=== PATIENT | female | born 1950 | race Two or more races ===

== ENCOUNTER 2023-12-17 12:15 | Inpatient (IN) | payer OTHER ==
[~2023-12-17] VITALS: Ht 162.6 cm; Wt 76.2 kg
[2023-12-17 16:53] LABS: PROTHROMBIN TIME 11.2 SECONDS (9.0-11.5)
[2023-12-17 16:54] LABS: INR 1.07; PARTIAL THROMBOPLASTIN TIME 28.1 SECONDS (22.0-34.0)
[2023-12-19] MEDS ORDERED: GLIPIZIDE XL2.5 MG PO (17:06)
[2023-12-19] MEDS ORDERED: ZESTRIL2.5 MG PO (17:06)
[2023-12-20] MEDS ORDERED: GLIPIZIDE10 MG (14:47)
[2023-12-20] MEDS ORDERED: ATORVASTATIN CA10 MG (14:47)
[2023-12-20] MEDS ORDERED: LISINOPRIL5 MG (14:47)
[2023-12-20] MEDS ORDERED: CEFAZOLIN SODIUM 1,000 MG VIAL ONE (14:54)
[2023-12-20] MEDS ORDERED: BUPIVACAINE HCL/PF 0.5% 30ML ML ONE (14:56)
[2023-12-20] MEDS ORDERED: LIDOCAINE HCL 1%/Epi 20ML VIAL IJ ONE (14:56)
[2023-12-20] MEDS ORDERED: POVIDONE-IODINE 118 ML BOTT TOP ONE ×2 (15:00→16:30)
[2023-12-20] MEDS ORDERED: CEFAZOLIN SODIUM 1,000 MG VIAL IV ONE (16:30)
[2023-12-20] MEDS ORDERED: BUPIVACAINE HCL 30 ML VIAL IJ ONE (16:45)
[2023-12-20] MEDS ORDERED: LIDOCAINE HCL 1% 200MG/20ML VIAL IJ ONE (16:45)
[2023-12-20] MEDS ORDERED: THROMBIN,HU/FIBRINOGEN/CALCIUM 10 ML SYRINGE TOP ONE (17:27)
[2023-12-20] MEDS ORDERED: VISTASEAL DUAL APPICATOR 1 EACH APPL TOP ONE (17:27)
[2023-12-20] MEDS ORDERED: MORPHINE SULFATE 4 MG/ML CARTRIDGE IV PRN (18:30)
[2023-12-20] MEDS ORDERED: ONDANSETRON HCL 2 MG/ML VIAL IV PRN (18:30)
[2023-12-20] MEDS ORDERED: RINGERS SOLUTION,LACTATED 1,000 ML IV SCH (18:30)
[2023-12-20] MEDS ORDERED: hydrALAZINE HCL 20 MG VIAL ONE (18:36)
[2023-12-20] MEDS ORDERED: FAMOTIDINE/PF 20 MG/2 ML VIAL IV SCH (21:00)
[2023-12-20] MEDS ORDERED: DOCUSATE SODIUM 100MG CAP PO SCH (21:00)
[2023-12-20] MEDS ORDERED: ENALAPRILAT DIHYDRATE 1.25 MG/ML VIAL IV PRN (21:30)
[2023-12-20] MEDS ORDERED: FAMOTIDINE/PF 20 MG/2 ML VIAL ONE (21:33)
[2023-12-20 23:14] LABS: HEMATOCRIT 37.7 % (36.0-45.00); HEMOGLOBIN 12.5 g/dL (12.0-15.00); MEAN CELL VOLUME 87.5 fL (80.00-100.00); MEAN CORPUSCULAR HGB CONC 33.1 g/dl (32.0-36.0); PLATELET COUNT 217 K/uL (150-450); RED CELL DISTRIBUTION WIDTH 13.9 % (11.5-14.5)
[2023-12-20 23:41] LABS: CALCIUM 8.8 mg/dL (8.5-10.1); CREATININE SERUM 0.75 mg/dL (0.55-1.02); GFR 75.75; POTASSIUM 3.76 mEq/L (3.5-5.1)
[2023-12-21] MEDS ORDERED: CEFOXITIN SODIUM 2,000 MG VIAL IV SCH (01:00)
[2023-12-21] MEDS ORDERED: KETOROLAC TROMETHAMINE 30 MG VIAL IV SCH (01:00)
[2023-12-21 07:21] LABS: HEMOGLOBIN 12.2 g/dL (12.0-15.00); MEAN CORPUSCULAR HEMOGLOBIN 28.8 pg (27.00-32.0); PLATELET COUNT 230 K/uL (150-450); RED BLOOD COUNT 4.25 M/uL (4.00-6.00); RED CELL DISTRIBUTION WIDTH 14.1 % (11.5-14.5)
[2023-12-21 07:24] LABS: CALCIUM 8.7 mg/dL (8.5-10.1); CREATININE SERUM 0.65 mg/dL (0.55-1.02); GFR 89.35; POTASSIUM 4.2 mEq/L (3.5-5.1)
[2023-12-21] MEDS ORDERED: SIMETHICONE 125 MG CAPSULE PO SCH (09:00)
[2023-12-21] MEDS ORDERED: ENOXAPARIN SODIUM 40 MG/0.4 ML SYRINGE SUBCUTANEO SCH (09:00)
== END 2023-12-21 11:02 | disposition home or self-care (01) | DRG 740 ==
LOC: O/R 12-20 10:25 → SURG 12-20 12:15
PROVIDERS: Obstetrics & Gynecology; Surgery; ADMIT Obstetrics & Gynecology Gynecologic Oncology; ATTEND Obstetrics & Gynecology Gynecologic Oncology
PROC: 0UT24ZZ Resection of Bilateral Ovaries, Percutaneous Endoscopic Approach (ICD-10-PCS; 2023-12-20)
PROC: 07BC4ZZ Excision of Pelvis Lymphatic, Percutaneous Endoscopic Approach (ICD-10-PCS; 2023-12-20)
PROC: 07BD4ZZ Excision of Aortic Lymphatic, Percutaneous Endoscopic Approach (ICD-10-PCS; 2023-12-20)
PROC: 0WQF4ZZ Repair Abdominal Wall, Percutaneous Endoscopic Approach (ICD-10-PCS; 2023-12-20)
PROC: 0UT94ZZ Resection of Uterus, Percutaneous Endoscopic Approach (ICD-10-PCS; principal; 2023-12-20 13:15)
PROC: 0UT74ZZ Resection of Bilateral Fallopian Tubes, Percutaneous Endoscopic Approach (ICD-10-PCS; 2023-12-20 13:15)
DX: C54.1 Malignant neoplasm of endometrium (principal); K42.0 Umbilical hernia with obstruction, without gangrene; N80.03 Adenomyosis of the uterus; N72 Inflammatory disease of cervix uteri; K43.2 Incisional hernia without obstruction or gangrene; Z20.822 Contact with and (suspected) exposure to COVID-19